=== PATIENT | female | born 1940 | race Caucasian/White ===

== ENCOUNTER 2024-05-14 09:32 | Inpatient (IN) | payer MEDICARE, BC ==
[2024-05-14] MEDS: Sodium Chloride 0.9% 1,000 ML IV ONE (09:45)
[2024-05-14 09:58] LABS: BASOPHILS ABSOLUTE AUTO 0.04 K/uL (0.00-0.20); BASOPHILS PERCENT AUTO 0.2 % (0.0-2.0); HEMATOCRIT 35.6 % (34.0-46.0); HEMOGLOBIN 12.1 g/dL (11.7-15.5); LYMPHOCYTES ABSOLUTE AUTO 1.16 K/uL (0.50-3.50); LYMPHOCYTES PERCENT AUTO 4.7 % (10.0-50.0); MEAN CORPUSCULAR HEMOGLOBIN 28.5 pg (28.2-33.3); MONOCYTES ABSOLUTE AUTO 2.25 K/uL (0.00-1.00); MONOCYTES PERCENT AUTO 9.1 % (2.0-14.0); NEUTROPHILS ABSOLUTE AUTO 21.39 K/uL (1.40-7.00); PLATELET COUNT,PLT 169 K/uL (150-350); RED BLOOD CELL COUNT 4.24 M/uL (3.77-5.09); RED CELL DISTRIBUTION WIDTH 13.8 % (11.2-14.1); WHITE BLOOD CELL COUNT,WBC 24.8 K/uL (4.0-10.2)
[2024-05-14 10:05] LABS: CALCIUM 8.9 mg/dL (8.5-10.1); CARBON DIOXIDE,CO2 24.3 mmol/L (21.0-32.0); CREATININE 1.82 mg/dL (0.51-1.17); EST CRCL DRUG DOSING (CG) 23.57 mL/min; POTASSIUM,K 4.2 mmol/L (3.5-5.1)
[2024-05-14 10:06] LABS: ANION GAP 13.9 meq/L (7-15)
[2024-05-14 10:14] LABS: LACTIC ACID 1.4 mmol/L (0.4-2.0)
[2024-05-14 10:30] LABS: APPEARANCE,URINE CLOUDY; BILIRUBIN,URINE NEGATIVE (NEGATIVE); COLOR,URINE YELLOW; GLUCOSE,URINE NEGATIVE (NEGATIVE); KETONES,URINE NEGATIVE (NEGATIVE); LEUKOCYTE ESTERASE,URINE LARGE (NEGATIVE); NITRITE,URINE POSITIVE (NEGATIVE); OCCULT BLOOD,URINE LARGE (NEGATIVE); PH,URINE >= 9.0 (5.0-9.0); PROTEIN,URINE >=300 mg/dL (NEGATIVE); UROBILINOGEN,URINE 0.2 E.U./dL (0.2-1.0)
[2024-05-14] MEDS: cefTRIAXone 1 GM Vial IVPUSH SCH (10:31)
[2024-05-14 10:46] LABS: EPITHELIAL CELLS,URINE RARE /LPF; WBC,URINE 50-75 /HPF
[2024-05-14 10:47] LABS: AMORPHOUS SEDIMENT,URINE MODERATE /HPF (0/HPF); BACTERIA,URINE MODERATE /HPF (NONE TO FEW); MUCUS,URINE MANY /LPF (NEGATIVE)
[2024-05-14] MEDS: Sodium Chloride 0.9% 1,000 ML IV SCH (10:50)
[2024-05-14] MEDS: cefTRIAXone 1 GM Vial IVPUSH ONE (10:54)
[2024-05-14] MEDS: Acetaminophen 325 MG Tab PO ONE (12:42)
[2024-05-14] MEDS ORDERED: Polyethylene Glycol 3350 Powder 17 GM Packet PO PRN (12:47)
[2024-05-14] MEDS ORDERED: Ondansetron 4 MG Tab.DIS PO PRN (12:47)
[2024-05-14] MEDS ORDERED: Fluticasone NASAL Spray 16 GM Bottle NAS PRN (12:49)
[2024-05-14] MEDS: Ondansetron 4 MG/2 ML SDV IVPUSH ONE (13:35)
[2024-05-14] MEDS: Enoxaparin 30 MG/0.3 ML Syringe SUBCUT SCH (16:22)
[2024-05-14] MEDS: Insulin Lispro 100 Units/ML 3 ML Vial SUBCUT SCH (17:18)
[2024-05-14] MEDS ORDERED: Menthol 10%/Methyl Salicylate 15% 85 GM Tube TOP SCH ×2 (18:00→20:00)
[2024-05-14] MEDS ORDERED: Gabapentin 300 MG Cap PO SCH (18:00)
[2024-05-14] MEDS: Docusate Sodium 100 MG Cap PO SCH (18:16)
[2024-05-14] MEDS: Gabapentin 300 MG Cap PO SCH (18:18)
[2024-05-14] MEDS: Losartan 50 MG Tab PO SCH (18:18)
[2024-05-14] MEDS: Carvedilol 12.5 MG Tab PO SCH (18:19)
[2024-05-14] MEDS: hydrALAZINE 50 MG Tab PO SCH (18:20)
[2024-05-14] MEDS: rOPINIRole 0.25 MG Tab PO SCH (19:11)
[2024-05-14] MEDS: Melatonin 3 MG Tab PO SCH (19:11)
[2024-05-14] MEDS: amLODIPine 5 MG Tab PO SCH (19:11)
[2024-05-14] MEDS: traZODone 50 MG Tab PO SCH (19:11)
[2024-05-14] MEDS: Acetaminophen 325 MG Tab PO PRN (19:11)
[2024-05-14] MEDS: Donepezil 10 MG Tab PO SCH (19:11)
[2024-05-14] MEDS: Insulin Glarg,Human.Rec.Analog 100 Unit/ML 10 ML Vial SUBCUT SCH (19:15)
[2024-05-15 07:59] LABS: CALCIUM 8.1 mg/dL (8.5-10.1); CARBON DIOXIDE,CO2 26.2 mmol/L (21.0-32.0); CREATININE 1.99 mg/dL (0.51-1.17); EST CRCL DRUG DOSING (CG) 21.56 mL/min; POTASSIUM,K 4.3 mmol/L (3.5-5.1)
[2024-05-15] MEDS: Amantadine 100 MG Cap PO SCH (08:40)
[2024-05-15] MEDS: Magnesium Chloride 64 MG Tab.ER PO SCH (08:40)
[2024-05-15] MEDS: Aspirin 325 MG Tab PO SCH (08:40)
[2024-05-15] MEDS: Isosorbide Mononitrate 60 MG Tab.ER PO SCH (08:40)
[2024-05-15] MEDS: atorvaSTATin 40 MG Tab PO SCH (08:40)
[2024-05-15] MEDS: Spironolactone 25 MG Tab PO SCH (08:40)
[2024-05-15] MEDS: Hydrochlorothiazide 25 MG Tab PO SCH (08:40)
[2024-05-15] MEDS: Multivitamin Tab PO SCH (08:40)
[2024-05-15] MEDS: Cholecalciferol (Vitamin D3) 5,000 UNIT Tab PO SCH (08:40)
[2024-05-15 09:08] LABS: ANION GAP 12.1 meq/L (7-15)
[2024-05-15 09:09] LABS: BASOPHILS ABSOLUTE AUTO 0.02 K/uL (0.00-0.20); BASOPHILS PERCENT AUTO 0.1 % (0.0-2.0); HEMOGLOBIN 11.2 g/dL (11.7-15.5); LYMPHOCYTES ABSOLUTE AUTO 1.03 K/uL (0.50-3.50); LYMPHOCYTES PERCENT AUTO 4.8 % (10.0-50.0); MEAN CORPUSCULAR HEMOGLOBIN 28.4 pg (28.2-33.3); MEAN CORPUSCULAR HGB CONC 32.9 g/dL (31.7-36.0); MEAN CORPUSCULAR VOLUME 86.3 fL (84.0-98.0); MONOCYTES ABSOLUTE AUTO 1.75 K/uL (0.00-1.00); MONOCYTES PERCENT AUTO 8.2 % (2.0-14.0); NEUTROPHILS ABSOLUTE AUTO 18.62 K/uL (1.40-7.00); NEUTROPHILS PERCENT AUTO 86.9 % (45.0-80.0); PLATELET COUNT,PLT 156 K/uL (150-350); RED BLOOD CELL COUNT 3.94 M/uL (3.77-5.09); RED CELL DISTRIBUTION WIDTH 14.1 % (11.2-14.1); WHITE BLOOD CELL COUNT,WBC 21.4 K/uL (4.0-10.2)
[2024-05-15] MEDS: Sodium Chloride 0.9% 10 ML Syringe FLUSH PRN (10:17)
[2024-05-15] MEDS ORDERED: Glucagon,Human Recombinant 1 MG Vial IM PRN (12:30)
[2024-05-15] MEDS ORDERED: 50% Dextrose in Water 50 ML Syringe IVPUSH PRN (12:30)
[2024-05-15] MEDS: Insulin Lispro 100 Units/ML 3 ML Vial SUBCUT SCH ×3 (12:53→17:51)
[2024-05-15] MEDS: Bumetanide 2.5 MG/10 ML MDV IVPUSH ONE ×2 (14:48→20:37)
[2024-05-16 07:28] LABS: BASOPHILS ABSOLUTE AUTO 0.03 K/uL (0.00-0.20); BASOPHILS PERCENT AUTO 0.2 % (0.0-2.0); EOSINOPHILS ABSOLUTE AUTO 0.03 K/uL (0.00-0.50); EOSINOPHILS PERCENT AUTO 0.2 % (0.0-5.0); HEMATOCRIT 32.7 % (34.0-46.0); HEMOGLOBIN 10.9 g/dL (11.7-15.5); LYMPHOCYTES ABSOLUTE AUTO 1.91 K/uL (0.50-3.50); MEAN CORPUSCULAR HEMOGLOBIN 28.3 pg (28.2-33.3); MEAN CORPUSCULAR HGB CONC 33.3 g/dL (31.7-36.0); MEAN CORPUSCULAR VOLUME 84.9 fL (84.0-98.0); MONOCYTES ABSOLUTE AUTO 1.82 K/uL (0.00-1.00); MONOCYTES PERCENT AUTO 11.5 % (2.0-14.0); NEUTROPHILS ABSOLUTE AUTO 12.07 K/uL (1.40-7.00); NEUTROPHILS PERCENT AUTO 76.1 % (45.0-80.0); PLATELET COUNT,PLT 141 K/uL (150-350); RED BLOOD CELL COUNT 3.85 M/uL (3.77-5.09); RED CELL DISTRIBUTION WIDTH 13.9 % (11.2-14.1); WHITE BLOOD CELL COUNT,WBC 15.9 K/uL (4.0-10.2)
[2024-05-16 07:56] LABS: CALCIUM 8.3 mg/dL (8.5-10.1); CREATININE 2.58 mg/dL (0.51-1.17); EST CRCL DRUG DOSING (CG) 16.63 mL/min; POTASSIUM,K 4.3 mmol/L (3.5-5.1)
[2024-05-16 08:00] LABS: ANION GAP 14.3 meq/L (7-15)
[2024-05-16] MEDS: cefTRIAXone 1 GM Vial IVPUSH ONE (13:26)
[2024-05-16] MEDS: Menthol 10%/Methyl Salicylate 15% 85 GM Tube TOP PRN (14:03)
[2024-05-17 07:20] LABS: BASOPHILS ABSOLUTE AUTO 0.03 K/uL (0.00-0.20); BASOPHILS PERCENT AUTO 0.2 % (0.0-2.0); EOSINOPHILS ABSOLUTE AUTO 0.08 K/uL (0.00-0.50); EOSINOPHILS PERCENT AUTO 0.5 % (0.0-5.0); HEMATOCRIT 31.8 % (34.0-46.0); HEMOGLOBIN 10.6 g/dL (11.7-15.5); LYMPHOCYTES ABSOLUTE AUTO 1.31 K/uL (0.50-3.50); LYMPHOCYTES PERCENT AUTO 8.6 % (10.0-50.0); MEAN CORPUSCULAR HGB CONC 33.3 g/dL (31.7-36.0); MEAN CORPUSCULAR VOLUME 83.9 fL (84.0-98.0); MONOCYTES ABSOLUTE AUTO 1.81 K/uL (0.00-1.00); MONOCYTES PERCENT AUTO 11.8 % (2.0-14.0); NEUTROPHILS ABSOLUTE AUTO 12.06 K/uL (1.40-7.00); NEUTROPHILS PERCENT AUTO 78.9 % (45.0-80.0); PLATELET COUNT,PLT 137 K/uL (150-350); RED BLOOD CELL COUNT 3.79 M/uL (3.77-5.09); RED CELL DISTRIBUTION WIDTH 13.8 % (11.2-14.1); WHITE BLOOD CELL COUNT,WBC 15.3 K/uL (4.0-10.2)
[2024-05-17 07:45] LABS: ANION GAP 9.3 meq/L (7-15); CALCIUM 8.4 mg/dL (8.5-10.1); CARBON DIOXIDE,CO2 26.7 mmol/L (21.0-32.0); CREATININE 2.28 mg/dL (0.51-1.17); EST CRCL DRUG DOSING (CG) 18.82 mL/min
[2024-05-17] MEDS: Sodium Chloride 3% 500 ML IV SCH (10:13)
[2024-05-17] MEDS: Amantadine 100 MG Cap PO SCH (11:05)
[2024-05-17] MEDS: cefTRIAXone 2 GM Vial IVPUSH SCH (13:43)
[2024-05-17] MEDS: Furosemide 40 MG/4 ML VIAL IVPUSH ONE (14:53)
[2024-05-17 15:32] LABS: CALCIUM 8.4 mg/dL (8.5-10.1); CARBON DIOXIDE,CO2 22.2 mmol/L (21.0-32.0); CREATININE 2.16 mg/dL (0.51-1.17); EST CRCL DRUG DOSING (CG) 19.86 mL/min; POTASSIUM,K 4.2 mmol/L (3.5-5.1)
[2024-05-18 06:25] LABS: BASOPHILS ABSOLUTE AUTO 0.02 K/uL (0.00-0.20); BASOPHILS PERCENT AUTO 0.1 % (0.0-2.0); EOSINOPHILS ABSOLUTE AUTO 0.08 K/uL (0.00-0.50); EOSINOPHILS PERCENT AUTO 0.5 % (0.0-5.0); HEMATOCRIT 32.6 % (34.0-46.0); LYMPHOCYTES ABSOLUTE AUTO 1.34 K/uL (0.50-3.50); LYMPHOCYTES PERCENT AUTO 8.1 % (10.0-50.0); MEAN CORPUSCULAR HGB CONC 33.7 g/dL (31.7-36.0); MONOCYTES ABSOLUTE AUTO 1.56 K/uL (0.00-1.00); MONOCYTES PERCENT AUTO 9.4 % (2.0-14.0); NEUTROPHILS ABSOLUTE AUTO 13.62 K/uL (1.40-7.00); NEUTROPHILS PERCENT AUTO 81.9 % (45.0-80.0); PLATELET COUNT,PLT 169 K/uL (150-350); RED BLOOD CELL COUNT 3.93 M/uL (3.77-5.09); WHITE BLOOD CELL COUNT,WBC 16.6 K/uL (4.0-10.2)
[2024-05-18 06:44] LABS: CALCIUM 8.6 mg/dL (8.5-10.1); CARBON DIOXIDE,CO2 25.1 mmol/L (21.0-32.0); CREATININE 1.86 mg/dL (0.51-1.17); EST CRCL DRUG DOSING (CG) 23.07 mL/min; MAGNESIUM 1.8 mg/dL (1.8-2.4); POTASSIUM,K 3.9 mmol/L (3.5-5.1)
[2024-05-18 06:51] LABS: ANION GAP 13.8 meq/L (7-15)
[2024-05-18] MEDS: VANCOmycin 1.75 GM/350 ML 1.75 GM in Premix Bag 1 BAG IV ONE (08:29)
[2024-05-18] MEDS: Levofloxacin 500 MG Tab PO SCH (08:30)
[2024-05-18] MEDS: Furosemide 40 MG/4 ML VIAL IVPUSH ONE (11:48)
[2024-05-18] MEDS: cefTRIAXone 2 GM Vial IVPUSH ONE (13:31)
[2024-05-18] MEDS: LORazepam 1 MG Tab PO ONE (13:50)
[2024-05-18] MEDS ORDERED: cefTRIAXone 1 GM in Sodium Chloride 0.9% 100 ML IV ONE (14:00)
[2024-05-18] MEDS ORDERED: cefTRIAXone 1 GM Vial IVPUSH ONE (14:00)
[2024-05-19 07:34] LABS: BASOPHILS ABSOLUTE AUTO 0.03 K/uL (0.00-0.20); BASOPHILS PERCENT AUTO 0.2 % (0.0-2.0); EOSINOPHILS ABSOLUTE AUTO 0.13 K/uL (0.00-0.50); EOSINOPHILS PERCENT AUTO 0.7 % (0.0-5.0); HEMOGLOBIN 11.3 g/dL (11.7-15.5); LYMPHOCYTES ABSOLUTE AUTO 1.74 K/uL (0.50-3.50); MEAN CORPUSCULAR HEMOGLOBIN 27.6 pg (28.2-33.3); MEAN CORPUSCULAR HGB CONC 33.2 g/dL (31.7-36.0); MEAN CORPUSCULAR VOLUME 83.1 fL (84.0-98.0); MONOCYTES ABSOLUTE AUTO 1.61 K/uL (0.00-1.00); MONOCYTES PERCENT AUTO 9.3 % (2.0-14.0); NEUTROPHILS ABSOLUTE AUTO 13.88 K/uL (1.40-7.00); NEUTROPHILS PERCENT AUTO 79.8 % (45.0-80.0); PLATELET COUNT,PLT 181 K/uL (150-350); RED BLOOD CELL COUNT 4.09 M/uL (3.77-5.09); RED CELL DISTRIBUTION WIDTH 13.9 % (11.2-14.1); WHITE BLOOD CELL COUNT,WBC 17.4 K/uL (4.0-10.2)
[2024-05-19] MEDS: Menthol 10%/Methyl Salicylate 15% 85 GM Tube TOP PRN (07:35)
[2024-05-19 07:59] LABS: ALBUMIN 2.3 g/dL (3.4-5.0); BILIRUBIN TOTAL 0.5 mg/dL (0.2-1.0); CALCIUM 9.1 mg/dL (8.5-10.1); CARBON DIOXIDE,CO2 29.3 mmol/L (21.0-32.0); CREATININE 1.89 mg/dL (0.51-1.17); EST CRCL DRUG DOSING (CG) 22.7 mL/min; POTASSIUM,K 3.4 mmol/L (3.5-5.1); PROTEIN TOTAL,TP 7.2 g/dL (6.4-8.2)
[2024-05-19 08:00] LABS: ANION GAP 7.1 meq/L (7-15)
[2024-05-19] MEDS: Sodium Chloride 3% 50 ML IV ONE (09:17)
[2024-05-19] MEDS: Sodium Chloride 3% 500 ML IV ONE (09:46)
[2024-05-19 10:41] LABS: APPEARANCE,URINE CLOUDY; BILIRUBIN,URINE NEGATIVE (NEGATIVE); COLOR,URINE YELLOW; GLUCOSE,URINE NEGATIVE (NEGATIVE); KETONES,URINE NEGATIVE (NEGATIVE); LEUKOCYTE ESTERASE,URINE TRACE (NEGATIVE); NITRITE,URINE NEGATIVE (NEGATIVE); OCCULT BLOOD,URINE NEGATIVE (NEGATIVE); PH,URINE 5.5 (5.0-9.0); PROTEIN,URINE NEGATIVE (NEGATIVE); UROBILINOGEN,URINE 0.2 E.U./dL (0.2-1.0)
[2024-05-19 10:42] LABS: BACTERIA,URINE FEW /HPF (NONE TO FEW); RBC,URINE 0-5 /HPF
== END 2024-05-19 16:05 | DRG 690 ==
LOC: LL.ED 09:32 → LL.MS 10:42 → UNDOADMIN 10:42 → LL.MS 12:45 → UNDODISIN 05-19 16:05
PROVIDERS: ADMIT Physician Assistant; ATTEND Physician Assistant
DX: N12 Tubulo-interstitial nephritis, not specified as acute or chronic (principal); N10 Acute pyelonephritis; F02.84 Dementia in other diseases classified elsewhere, unspecified severity, with anxiety; E87.1 Hypo-osmolality and hyponatremia; I63.9 Cerebral infarction, unspecified; Z66 Do not resuscitate; I10 Essential (primary) hypertension; F02.80 Dementia in other diseases classified elsewhere, unspecified severity, without behavioral disturbance, psychotic disturbance, mood disturbance, and anxiety; N17.9 Acute kidney failure, unspecified; I27.20 Pulmonary hypertension, unspecified; K21.9 Gastro-esophageal reflux disease without esophagitis; F41.1 Generalized anxiety disorder; G47.33 Obstructive sleep apnea (adult) (pediatric); H54.7 Unspecified visual loss; E11.65 Type 2 diabetes mellitus with hyperglycemia; I1A.0 Resistant hypertension; G25.81 Restless legs syndrome; G30.9 Alzheimer's disease, unspecified; Z88.0 Allergy status to penicillin; E78.00 Pure hypercholesterolemia, unspecified; Z91.09 Other allergy status, other than to drugs and biological substances; I25.10 Atherosclerotic heart disease of native coronary artery without angina pectoris; F51.01 Primary insomnia; Z91.048 Other nonmedicinal substance allergy status; D72.829 Elevated white blood cell count, unspecified; E83.42 Hypomagnesemia; I50.9 Heart failure, unspecified; R32 Unspecified urinary incontinence; R79.89 Other specified abnormal findings of blood chemistry; Z86.73 Personal history of transient ischemic attack (TIA), and cerebral infarction without residual deficits; Z95.1 Presence of aortocoronary bypass graft; Z79.4 Long term (current) use of insulin; Z88.8 Allergy status to other drugs, medicaments and biological substances; Z88.5 Allergy status to narcotic agent; Z91.013 Allergy to seafood; Z88.2 Allergy status to sulfonamides; Z79.82 Long term (current) use of aspirin; Z79.899 Other long term (current) drug therapy; Z90.49 Acquired absence of other specified parts of digestive tract
CPT/HCPCS: 36415; 71045; 80048; 81001; 83605; 85025; 87040 ×2; 87077; 87186; J0696; J7030; 51702; 80053; 82947; 83735; 83880; 84295; 87086; 94762; 97162-GP; 99223; 99232; 99233; 99239; A9270-GY; J1650; J1815-GY; J1940; J2405; J3490; J7040

== ENCOUNTER 2024-12-19 09:17 | Emergency (ER) | payer MEDICARE, BC ==
[2024-12-19 09:54] LABS: BASOPHILS ABSOLUTE AUTO 0.03 K/uL (0.00-0.20); BASOPHILS PERCENT AUTO 0.4 % (0.0-2.0); EOSINOPHILS ABSOLUTE AUTO 0.18 K/uL (0.00-0.50); EOSINOPHILS PERCENT AUTO 2.2 % (0.0-5.0); HEMOGLOBIN 10.6 g/dL (11.7-15.5); IMMATURE GRAN ABSOLUTE AUTO 0.03 10^3/uL (0.00-0.04); IMMATURE GRAN PERCENT AUTO 0.4 % (0.0-0.4); LYMPHOCYTES ABSOLUTE AUTO 1.45 K/uL (0.50-3.50); MEAN CORPUSCULAR HEMOGLOBIN 26.1 pg (28.2-33.3); MEAN CORPUSCULAR HGB CONC 31.2 g/dL (31.7-36.0); MEAN CORPUSCULAR VOLUME 83.7 fL (84.0-98.0); MONOCYTES ABSOLUTE AUTO 0.79 K/uL (0.00-1.00); MONOCYTES PERCENT AUTO 9.8 % (2.0-14.0); NEUTROPHILS ABSOLUTE AUTO 5.56 K/uL (1.40-7.00); NEUTROPHILS PERCENT AUTO 69.2 % (45.0-80.0); PLATELET COUNT,PLT 177 K/uL (150-350); RED BLOOD CELL COUNT 4.06 M/uL (3.77-5.09); RED CELL DISTRIBUTION WIDTH 14.5 % (11.2-14.1)
[2024-12-19 10:22] LABS: ALANINE AMINOTRANSFERASE,ALT 10 U/L (12-78); ALBUMIN 3.1 g/dL (3.4-5.0); ALKALINE PHOSPHATASE 82 IU/L (46-116); ANION GAP 5.7 meq/L (7-15); ASPARTATE AMNIOTRANSFERASE,AST 13 U/L (15-37); BILIRUBIN TOTAL 0.7 mg/dL (0.2-1.0); BLOOD UREA NITROGEN,BUN 20 mg/dL (7-18); CALCIUM 8.9 mg/dL (8.5-10.1); CARBON DIOXIDE,CO2 29.3 mmol/L (21.0-32.0); CHLORIDE,CL 102 mmol/L (98-107); CREATININE 1.33 mg/dL (0.51-1.17); GLUCOSE RANDOM 118 mg/dL (70-99); POTASSIUM,K 4.8 mmol/L (3.5-5.1); PRO B-TYPE NATRIUR PEPT,BNPPRO 4081 pg/mL (0-125); PROTEIN TOTAL,TP 7.3 g/dL (6.4-8.2); SODIUM,NA 137 mmol/L (136-145)
[2024-12-19 10:23] LABS: ESTIMATED GFR 40 mL/min (>=60)
== END 2024-12-19 12:15 ==
LOC: LL.ED 09:17
DX: I11.0 Hypertensive heart disease with heart failure (principal); I50.9 Heart failure, unspecified; E78.00 Pure hypercholesterolemia, unspecified; I25.10 Atherosclerotic heart disease of native coronary artery without angina pectoris; E11.9 Type 2 diabetes mellitus without complications; E66.9 Obesity, unspecified; Z90.49 Acquired absence of other specified parts of digestive tract; Z79.82 Long term (current) use of aspirin; Z79.899 Other long term (current) drug therapy; Z79.2 Long term (current) use of antibiotics; Z79.4 Long term (current) use of insulin; Z91.048 Other nonmedicinal substance allergy status; Z88.0 Allergy status to penicillin; Z88.2 Allergy status to sulfonamides; Z88.5 Allergy status to narcotic agent; Z88.8 Allergy status to other drugs, medicaments and biological substances
CPT/HCPCS: 36415; 71046; 80053; 83880; 85025; 99284